=== PATIENT | female | born 1990 | race Caucasian/White ===

== ENCOUNTER 2021-08-03 08:49 | Inpatient (IN) | payer MEDICAID, OTHER ==
[2021-08-03 10:01] VITALS: BMI 34.2
[2021-08-03] MEDS ORDERED: hydrALAZINE 20 MG/ML VIAL SLOW IVP PRN ×3 (10:01→17:57)
[2021-08-03] MEDS ORDERED: Lactated Ringer's 1,000 ML IV SCH ×2 (10:15→12:00)
[2021-08-03] MEDS ORDERED: Bicitra 30 ML UDCUP PO PRN (11:56)
[2021-08-03] MEDS ORDERED: Ondansetron PF 4 MG/2 ML Vial IVP PRN ×4 (11:56→17:57)
[2021-08-03] MEDS ORDERED: Promethazine HCl 25 MG/ML VIAL IM PRN ×4 (11:56→17:57)
[2021-08-03] MEDS ORDERED: Famotidine/PF 20 mg/2ml Vial SLOW IVP PRN (11:56)
[2021-08-03] MEDS ORDERED: ceFAZolin 2 GM/Dextrose 50 ML 2 GM in Premix Bag 1 BAG IVPB SCH (12:00)
[2021-08-03] MEDS ORDERED: Azithromycin 500 MG in Sodium Chloride 0.9% 250 ML 250 ML IVPB SCH (12:00)
[2021-08-03 12:22] LABS: Hemoglobin 12.2 g/dL (12.0-15.5); Mean Corpuscular HGB CONC 32.5 g/dL (32.0-36.0); Mean Corpuscular Hemoglobin 28.8 pg (27.0-33.0); Mean Corpuscular Volume 88.7 fl (81.6-98.3); Mean Platelet Volume 12.5 fl (7.4-10.4); Platelet Count 163 10x3/uL (150-450); RBC Distribution Width 13.9 % (11.5-14.5); Red Blood Cell (RBC) Count 4.23 10x6/uL (3.90-5.03); White Blood Cell (WBC) Count 7.8 10x3/uL (3.5-10.5)
[2021-08-03 12:56] LABS: Hep B Surf Ag Non-Reactive S/CO (NonReactive)
[2021-08-03 12:57] LABS: Syphilis Antibody Nonreactive (Nonreactive); Syphilis Antibody Index 0.04 S/CO (<1.00 Non-Reactive)
[2021-08-03 13:14] LABS: HBSAg Index 0.15 S/CO (0-0.99)
[2021-08-03] MEDS ORDERED: Naloxone HCl 0.4 mg/ml Vial IVP PRN ×4 (13:52→15:56)
[2021-08-03] MEDS ORDERED: Meperidine HCl/PF 25 MG/ML VIAL SLOW IVP PRN ×2 (13:52→15:56)
[2021-08-03] MEDS ORDERED: Fentanyl 100 MCG/2 ML VIAL SLOW IVP PRN ×2 (13:52→15:56)
[2021-08-03] MEDS ORDERED: Hydrocerin (Eucerin) Cream 120 gm Jar TOP PRN ×2 (13:52→15:56)
[2021-08-03] MEDS ORDERED: Naloxone HCl 0.4 mg/ml Vial IV PRN ×2 (13:52→15:56)
[2021-08-03] MEDS ORDERED: HYDROmorphone 2 MG/ML VIAL SLOW IVP PRN (13:52)
[2021-08-03] MEDS ORDERED: Ketorolac Tromethamine 30 MG/ML VIAL IVP PRN ×2 (13:52→15:56)
[2021-08-03] MEDS ORDERED: Promethazine HCl 25 MG SUPP PR PRN ×2 (13:52→15:56)
[2021-08-03] MEDS ORDERED: diphenhydrAMINE 50 MG/ML VIAL IVP PRN ×2 (13:52→15:56)
[2021-08-03] MEDS ORDERED: Ondansetron HCl/PF 4 MG/2 ML Vial IVP PRN ×2 (13:52→15:56)
[2021-08-03] MEDS ORDERED: Communication Order-Pharmacy FS SCH ×2 (14:00→16:00)
[2021-08-03] MEDS ORDERED: Ketorolac Tromethamine 30 MG/ML VIAL IVP SCH ×2 (14:00→16:00)
[2021-08-03] MEDS ORDERED: Fentanyl 100 MCG/2 ML VIAL ONE (14:43)
[2021-08-03] MEDS ORDERED: Morphine PF 10 MG/10 ML VIAL ONE (14:43)
[2021-08-03] MEDS ORDERED: Ketorolac Tromethamine 30 MG/ML VIAL ONE (14:47)
[2021-08-03] MEDS ORDERED: Ondansetron PF 4 MG/2 ML Vial ONE (14:47)
[2021-08-03] MEDS ORDERED: Oxytocin 10 UNITS/ML VIAL ONE (14:47)
[2021-08-03 15:13] LABS: SARS-CoV-2 NAA Rapid Test Not Detected (NotDetected)
[2021-08-03] MEDS ORDERED: Boostrix 0.5 ML (Tdap) VIAL IM ONE (17:57)
[2021-08-03] MEDS ORDERED: Simethicone Chewable 80 MG TAB PO PRN (17:57)
[2021-08-03] MEDS ORDERED: diphenhydrAMINE 25 MG CAP PO PRN (17:57)
[2021-08-03] MEDS ORDERED: Bisacodyl 10 MG SUPP PR PRN (17:57)
[2021-08-03] MEDS ORDERED: Lanolin Ointment 7 GM TUBE TOP PRN (17:57)
[2021-08-03] MEDS ORDERED: NS w/ Oxytocin 30 units 500 ML IV SCH (17:57)
[2021-08-03] MEDS: Ferrous Sulfate 325 MG TAB PO SCH (20:38)
[2021-08-03] MEDS: Docusate 100 MG CAP PO SCH (22:54)
[2021-08-04] MEDS: Ketorolac Tromethamine 30 MG/ML VIAL IVP SCH ×4 (00:32→18:16)
[2021-08-04] MEDS ORDERED: HYDROcodone/Acetaminophen 5/325 mg Tablet PO PRN (04:00)
[2021-08-04 04:31] LABS: Hemoglobin 10.2 g/dL (12.0-15.5); Mean Corpuscular HGB CONC 32.7 g/dL (32.0-36.0); Mean Corpuscular Hemoglobin 29.4 pg (27.0-33.0); Mean Corpuscular Volume 89.9 fl (81.6-98.3); Mean Platelet Volume 11.9 fl (7.4-10.4); Platelet Count 128 10x3/uL (150-450); RBC Distribution Width 13.9 % (11.5-14.5); Red Blood Cell (RBC) Count 3.47 10x6/uL (3.90-5.03); White Blood Cell (WBC) Count 8.2 10x3/uL (3.5-10.5)
[2021-08-04] MEDS: Ferrous Sulfate 325 MG TAB PO SCH ×2 (07:22→22:08)
[2021-08-04] MEDS: Prenatal Vitamin 1 TAB PO SCH (09:01)
[2021-08-04] MEDS: Docusate 100 MG CAP PO SCH ×2 (09:01→22:08)
[2021-08-04] MEDS: HYDROcodone/Acetaminophen 5/325 mg Tablet PO PRN ×2 (09:02→17:11)
[2021-08-04] MEDS: Ibuprofen 800 MG TAB PO SCH (22:09)
[2021-08-05] MEDS: Ferrous Sulfate 325 MG TAB PO SCH (07:35)
[2021-08-05] MEDS: Prenatal Vitamin 1 TAB PO SCH (07:53)
[2021-08-05] MEDS: Ibuprofen 800 MG TAB PO SCH ×3 (07:53→21:34)
[2021-08-05] MEDS: Docusate 100 MG CAP PO SCH ×2 (07:54→21:34)
[2021-08-06] MEDS: Ferrous Sulfate 325 MG TAB PO SCH ×2 (01:52→09:31)
[2021-08-06] MEDS: HYDROcodone/Acetaminophen 5/325 mg Tablet PO PRN (05:33)
[2021-08-06] MEDS: Ibuprofen 800 MG TAB PO SCH ×2 (05:34→14:50)
[2021-08-06 08:09] VITALS: BP 104/61; TEMP 98.5
[2021-08-06] MEDS: Prenatal Vitamin 1 TAB PO SCH (09:31)
[2021-08-06] MEDS: Docusate 100 MG CAP PO SCH (09:31)
== END 2021-08-06 17:25 | disposition home or self-care (01) | DRG 788 ==
LOC: CSHLD/OP 08:49 → CSHLD 13:40 → CSHPP 18:20
PROVIDERS: ADMIT Family Medicine; ATTEND Family Medicine
PROC: 10D00Z1 Extraction of Products of Conception, Low, Open Approach (ICD-10-PCS; principal; 2021-08-03)
DX: O34.211 Maternal care for low transverse scar from previous cesarean delivery (principal); Z37.0 Single live birth; Z3A.38 38 weeks gestation of pregnancy; O24.429 Gestational diabetes mellitus in childbirth, unspecified control; Z20.822 Contact with and (suspected) exposure to COVID-19
CPT/HCPCS: 36415; 51702; 85027; 86780; 86850; 86900; 86901; 87340; 99285; J0456; J0690; J1885; J2274; J2405; J2590; J3010; J7050; U0002

== ENCOUNTER 2023-05-27 11:28 | Emergency (ER) | payer OTHER, SELFPAY ==
[2023-05-27 12:28] LABS: #Basophils 0.1 10x3/uL (0.0-0.2); #Eosinphils 0.2 10x3/uL (0.0-0.5); #Monocytes 0.6 10x3/uL (0.0-1.1); #Neutrophils 4.8 10x3/uL (1.5-8.4); %Basophils 0.7 % (0.0-2.0); %Eosinophils 2.8 % (0.0-6.0); %Lymphocytes 30.7 % (18.0-47.0); %Monocytes 6.9 % (0.0-10.0); %Neutrophils 58.7 % (40.0-75.0); Hematocrit 37.9 % (34.9-44.5); Hemoglobin 12.9 g/dL (12.0-15.5); Mean Corpuscular Hemoglobin 31.7 pg (27.0-33.0); Mean Corpuscular Volume 93.1 fl (81.6-98.3); Mean Platelet Volume 10.8 fl (7.4-10.4); Platelet Count 179 10x3/uL (150-450); RBC Distribution Width 12.7 % (11.5-14.5); Red Blood Cell (RBC) Count 4.07 10x6/uL (3.90-5.03); White Blood Cell (WBC) Count 8.1 10x3/uL (3.5-10.5)
[2023-05-27 12:49] LABS: ALT (SGPT) 14 U/L (8-55); AST (SGOT) 18 U/L (5-34); Albumin 4.3 g/dL (3.5-5.0); Alkaline Phosphatase 50 U/L (40-110); Anion Gap 14 mmol/L (10-20); BUN (Urea Nitrogen) 9 mg/dL (7.0-18.7); Bilirubin, Total 0.6 mg/dL (0.2-1.2); Calc. Creatinine Clearance 0 mL/min (70-130); Calcium 8.8 mg/dL (7.8-10.44); Carbon Dioxide 21 mmol/L (22-29); Chloride 107 mmol/L (98-107); Estimated GFR 122; Globulin 2.8 g/dL (2.4-3.5); Glucose 89 mg/dL (70-105); Potassium 3.7 mmol/L (3.5-5.1); Protein, Total 7.1 g/dL (6.0-8.3); Sodium 138 mmol/L (136-145)
[2023-05-27 13:02] LABS: Bilirubin Neg (Negative); Blood, Urine 150 (Negative); Clarity Cloudy (Clear); Glucose, Urine (Dipstick) Normal (Negative); Ketone, Urine Negative (Negative); Leukocyte Negative (Negative); Nitrite Negative (Negative); Protein, Urine (Dipstick) 100 mg/dl (Neg-Trace); Urobilinogen Normal mg/dL (Less than 2)
[2023-05-27 13:06] LABS: CAUTI Indications for Culture Pelvic or flank pain; RBC/HPF Greater than 50 HPF (0-3)
[2023-05-27 13:07] LABS: Bacteria/HPF Rare-Few HPF (None Seen); WBC/HPF 0-3 HPF (0-3)
[2023-05-27 13:08] LABS: Urine Culture Reflex No No
== END 2023-05-27 15:20 | disposition home or self-care (01) ==
LOC: CSHERS 11:28
DX: O20.0 Threatened abortion (principal); Z3A.01 Less than 8 weeks gestation of pregnancy
CPT/HCPCS: 36415; 76856; 80053; 81001; 84702; 85025; 86850; 86900; 86901